=== PATIENT | male | born 1955 | race Caucasian/White ===

== ENCOUNTER 2018-07-10 11:57 | Emergency (ER) | payer SELFPAY ==
[~2018-07-10] VITALS: Ht 175.3 cm; Wt 80.0 kg
[2018-07-10 12:00] VITALS: BP 134/80
== END 2018-07-10 12:25 | disposition left against medical advice (07) ==
LOC: ER 11:57
DX: F10.129 Alcohol abuse with intoxication, unspecified (principal)
CPT/HCPCS: 99283